=== PATIENT | male | born 1950 | race Caucasian/White ===

== ENCOUNTER 2017-08-20 11:00 | Outpatient (CLI) | payer MEDICARE, OTHER ==
--- NOTE | ~2017-08-20 | HEMODYNAMI ---
PATIENT:TORSTEN CHO MEDICAL RECORD: [id number] : 52 LOCATION:[facility] ADMISSION DATE: 08/20/17 Generatedon:08/20/201715:12 Patient name: TORSTEN CHO Patient #: [id number] SSN: : 1950 Date of study: 08/20/2017 Page: Of Hemodynamic Procedure Report Patient Data Patient Demographics Procedure consent was obtained First Name: TORSTEN Gender: Male Last Name: MARQUIS : 1950 Patient #: [id number] Age: 66 year(s) Race: Unknown Additional ID: [id number] Contact details Address: [place] [address] State: [place] City: [place] Zip code: [address] Past Medical History Allergies Allergen Reaction Date Comments Reported Other allergy 08/20/2017 Demerol Admission Admission Data Admission Date: 08/20/2017 Admission Time: 11:00 Admit Source: Other Lab Results Lab Result Date: 08/20/2017 Lab Result Time: 11:40 Biochemistry Name Units Result Min Max BUN mg/dl 21 --(----)-* 7 18 Creatinine mg/dl 0.8 --(-*--)-- 0.6 1.3 CBC Name Units Result Min Max Hematocrit % 44.2 --(*---)-- 42 54 Hemoglobin g/dl 15.3 --(-*--)-- 13.5 17.5 Procedure Procedure Types Cath Procedure Diagnostic Procedure LHC LH w/Coronaries PCI Procedure Coronary Stent Initial Miscellaneous Procedures Moderate Sedation up to 30 minutes Procedure Description Procedure Date Procedure Date: 08/20/2017 Procedure Start Time: 14:42 Procedure End Time: 15:11 Procedure Staff Name Function Malick Harrison MD Performing Physician Carolina Art RT Scrub Jose Sanabria RN Nurse Jerel Velasquez RT Monitor Procedure Data Cath Procedure Fluoroscopy Diagnostic fluoroscopy Total fluoroscopy Time: 7.6 time: 7.6 min min Diagnostic fluoroscopy Total fluoroscopy dose: dose: 1341 mGy 1341 mGy Contrast Material Contrast Material Type Amount (ml) Isovue 300 140 Entry Location Entry Primary Successful Side Size Upsize Upsize Entry Closure Davila ccessful Closure Location (Fr) 1 (Fr) 2 (Fr) Remarks Device Remarks Radial Right 6 Fr Mechanical artery Short Compression Estimated blood loss: 10 ml Diagnostic catheters Device Type Used For End Catheter Placement Diagnostic Terumo 5Fr Procedure [place] 110cm catheter Diagnostic Infinity 5Fr Procedure AR MOD Catheter Procedure Complications No complications Procedure Medications Medication Administration Route Dosage 0.9% NaCl I.V. 100 ml/hr Oxygen NC 2 l/min Heparin Flush Bag added to field 2 bags (1000units/500ml NS) Lidocaine 2% added to field 20 Radial Cocktail added to field 1 syringe (Verapomil 2mg/Nitro 400mcg/Heparin 1500units) Zofran I.V. 4 mg Versed I.V. 1 mg Fentanyl I.V. 50 mcg Versed I.V. 1 mg Fentanyl I.V. 50 mcg Radial Cocktail I.A. 1 syringe (Verapomil 2mg/Nitro 400mcg/Heparin 1500units) Heparin Bolus I.V. 5000 units Integrilin (Bolus I.V. 9 ml 2mg/ml) Integrilin (Bolus wasted 1 ml 2mg/ml) Plavix P.O. 600 mg Hemodynamics Rest HGB: 15.3 (g/dl) Heart Rate: 66 (bpm) Pressure Samples Time Site Value (mmHg) Purpose Heart Use Rate(bpm) 14:44 LV 116/10,9 EDP 83 14:45 AO 109/65(86) Pullback 74 14:45 LV 112/5,5 Pullback 74 Gradients Valve Time Site 1 Site 2 Mean SEP/DFP Peak To Heart Use (mmHg) (sec/min) Peak Rate (mmHg) (bpm) Aortic 14:45 LV AO 7 13 3 74 112/5,5 109/65(86) Calculations Valve P-P Mean Valve Index Valve Source Name Gradient Area Flow (cm2) Aortic 3 7 3 7 Snapshots Pre Cath Intra NCS Post Cath Vital Signs Time Heart Resp SPO2 etCO2 NIBP (mmHg) Rhythm Pain Sedation Rate (ipm) (%) (mmHg) Status Level (bpm) 14:23:21 72 20 98 24.7 177/106(144) NSR 0 (11) 10(A) , No pain 14:28:09 67 16 96 40.4 146/97(119) NSR 0 (11) 10(A) , No pain 14:32:52 67 16 96 12.7 145/90(112) NSR 0 (11) 10(A) , No pain 14:37:33 68 15 95 16.4 141/86(112) NSR 0 (11) 10(A) , No pain 14:42:11 67 14 96 39.7 146/94(118) NSR 0 (11) 10(A) , No pain 14:46:50 73 14 92 21.7 127/74(96) NSR 0 (11) 9(A) , No pain 14:51:28 79 16 92 41.9 140/84(116) NSR 0 (11) 9(A) , No pain 14:56:09 76 15 94 25.4 147/85(108) NSR 0 (11) 9(A) , No pain 15:00:49 76 16 94 41.2 130/77(103) NSR 0 (11) 9(A) , No pain 15:05:32 75 16 95 41.2 142/73(102) NSR 0 (11) 9(A) , No pain 15:10:15 80 16 94 32.2 134/84(110) NSR 0 (11) 9(A) , No pain Medications Time Medication Route Dose Verified Delivered Reason Note s Effectiveness by by 14:23:50 0.9% NaCl I.V. 100 Jose Jose Per physician ml/hr Elly Sanabria RN 14:24:02 Oxygen NC 2 l/min Jose Jose Per physician Elly Sanabria RN 14:24:17 Heparin Flush added 2 bags Jose Jose used for Bag to Elly aSnabria procedure (1000units/500ml field JACQUELINE NS) 14:24:35 Lidocaine 2% added 20ml Jose Jose for local to vial Elly Sanabria anesthetic field PHILLIPS 14:24:53 Radial Cocktail added 1 Jose Jose for (Verapomil to syringe Elly Sanabria vasodilation 2mg/Nitro RN 400mcg/Heparin 1500units) 14:27:35 Zofran I.V. 4 mg Jose Jose Per physician Elly Sanabria RN 14:39:06 Versed I.V. 1 mg Jose Jose for sedation Elly Sanabria RN 14:39:22 Fentanyl I.V. 50 mcg Jose Jose for sedation Elly Sanabria RN 14:41:28 Versed I.V. 1 mg Jose Jose for sedation Elly Sanabria RN 14:41:36 Fentanyl I.V. 50 mcg Jose Jose for sedation Elly Sanabria RN 14:44:37 Radial Cocktail I.A. 1 Joseelba Teresa for (Verapomil syringe Elly Harrison vasodilation 2mg/Nitro JACQUELINE YOO 400mcg/Heparin 1500units) 14:55:52 Heparin Bolus I.V. 5000 Jose Teresa for units Elly Harrison anticoagulation JACQUELINE YOO 14:56:15 Integrilin I.V. 9 ml Jose Teresa for (Bolus 2mg/ml) Elly Harrison antiplatelet JACQUELINE YOO therapy 14:56:28 Integrilin wasted 1 ml Joseelba Teresa to sharp's (Bolus 2mg/ml) Elly Harrison RN, MD 15:08:36 Plavix P.O. 600 mg Jose Martinezory for Elly Harrison antiplatelet JACQUELINE YOO therapy Procedure Log Time Note 12:52:26 Informed consent obtained and on chart 12:52:30 Admit Source: Other 12:52:31 Diagnostic Cath status Elective 12:52:33 Time tracking: Regular hours 12:52:37 Plan of Care:Hemodynamics will remain stable., Cardiac rhythm will remain stable., Comfort level will be maintained., Respiratory function will remain adequate., Patient/ family verbilizes understanding of procedure., Procedure tolerated without complication., Recovers from procedure without complications.. 12:52:53 H&P Date Dictated: 07/25/2017 Within 30 days and on chart., H&P Addendum completed by physician on day of procedure. (MUST COMPLETE FOR ALL OUTPATIENTS). 12:56:36 Lab Result : Creatinine 0.8 mg/dl 12:56:36 Lab Result : BUN 21 mg/dl 12:56:36 Lab Result : Hematocrit 44.2 % 12:56:36 Lab Result : Hemoglobin 15.3 g/dl 13:57:13 Jerel FREY(R) sent for patient. Start room use. 14:06:50 Patient received from Pre/Post Procedure Room to CCL 1 Alert and oriented. Tansferred to table in Supine position. 14:06:51 Warm blankets applied, and yudelka hugger turned on for patient comfort. 14:06:51 Correct patient and procedure confirmed by team. 14:06:52 ECG and BP/O2 sat monitors applied to patient. 14:22:23 Vital chart was started 14:23:50 0.9% NaCl 100 ml/hr I.V. was administered by Jose Sanabria; Per physician; 14:24:02 Oxygen 2 l/min NC was administered by Jose Sanabria; Per physician; 14:24:17 Heparin Flush Bag (1000units/500ml NS) 2 bags added to field was administered by Jose Sanabria; used for procedure; 14:24:35 Lidocaine 2% 20ml vial added to field was administered by Jose Sanabria; for local anesthetic; 14:24:53 Radial Cocktail (Verapomil 2mg/Nitro 400mcg/Heparin 1500units) 1 syringe added to field was administered by Jose Sanabria; for vasodilation; 14:27:35 Zofran 4 mg I.V. was administered by Jose Sanabria; Per physician; 14:30:40 Baseline sample Acquired. 14:30:44 Rhythm: sinus rhythm 14:30:45 Full Disclosure recording started 14:30:46 Pre-procedure instructions explained to patient. 14:30:47 Pre-op teaching completed and patient verbalized understanding. 14:30:54 Family in waiting room. 14:30:59 Patient NPO since Midnight. 14:31:13 Patient allergic to Other allergyDemerol 14:31:17 Is the patient allergic to Iodine/contrast media? No. 14:31:18 Is patient on blood thinner?No 14:31:19 Patient diabetic? No. 14:31:22 Previous problem with sedation/anesthesia? No ? 14:31:24 Snore? Yes 14:31:24 Sleep apnea? No 14:31:25 Deviated septum? No 14:31:27 Opens mouth fully? Yes 14:31:28 Sticks out tongue? Yes 14:31:31 Airway obstruction? No ? 14:31:35 Dentures? No ? 14:31:37 Modified Girma's test Ulnar < 7 seconds 14:31:39 Patient pain scale 0/10 ?. 14:31:47 IV patent on arrival in left hand with 0.9% NaCl at [facility]. 14:31:50 Lab results completed and on chart. 14:31:53 Right Radial & Right Groin area was prepped with chlora-prep and draped in sterile fashion 14::53 Alarms reviewed by R. N. 14:31:57 Sharps counted by scrub and verified by R.N. 14:31:59 Use device set Radial Dx 14:32:00 MBrace Wrist Support opened to sterile field. 14:32:01 Acist Manifold opened to sterile field. 14:32:02 Tegaderm 4 x 4 opened to sterile field. 14:32:02 Acist Hand Control opened to sterile field. 14:32:03 Acist Syringe opened to sterile field. 14:32:03 Medline Cath Pack opened to sterile field. 14:32:04 Bag Decanter opened to sterile field. 14:32:04 Terumo 6Fr Slender Glidesheath opened to sterile field. 14:32:05 St Michael 260cm J .035 wire opened to sterile field. 14:32:09 Physician arrived 14:32:10 --------ALL STOP TIME OUT------ 14:32:10 Final Timeout: patient, procedure, and site verified with staff and physician. All members of the team are in agreement. 14:32:11 Right Radial & Right Groin site verified by team. 14:32:15 Sedation plan: IV Moderate Sedation Versed, Fentanyl 14:34:39 Zero performed for pressure channel P1 14:39:06 Versed 1 mg I.V. was administered by Jose Sanabria; for sedation; 14:39:22 Fentanyl 50 mcg I.V. was administered by Jose Loriglesia; for sedation; 14:40:48 Procedure started. 14:41:28 Versed 1 mg I.V. was administered by Jose Loriglesia; for sedation; 14:41:36 Fentanyl 50 mcg I.V. was administered by Jose Loriglesia; for sedation; 14:42:58 Local anesthetic to right radial artery with Lidocaine 2% by Malick Harrison MD.INITIAL ACCESS ONLY 14:43:07 A 6 Fr Short sheath was inserted into the Right Radial artery 14:43:17 A Diagnostic Terumo 5Fr [place] 110cm catheter was advanced over the wire and used for Procedure. 14:43:57 LV hemodynamics recorded. 14:43:59 LV gram done using TALBERT 14:44:01 Injector settings: Ml/sec: 5, Volume: 15, 14:44:37 Radial Cocktail (Verapomil 2mg/Nitro 400mcg/Heparin 1500units) 1 syringe I.A. was administered by Malick Harrison MD; for vasodilation; 14:44:47 EF : 55 % 14:45:18 LCA angiography performed. 14:47:32 Catheter exchanged over wire. 14:48:11 A Diagnostic Infinity 5Fr AR MOD Catheter was advanced over the wire and used for Procedure. 14:49:45 RCA angiography performed. 14:51:23 Catheter removed. 14:51:54 Etienne Birch Tree Medicalisper J 300cm 0.014 guide wire opened to sterile field. 14:51:55 T1 Visions BasixCompak Inflation Kit opened to sterile field. 14:52:56 Cordis 6FR XB 3.5 guide catheter opened to sterile field. 14:53:24 6 Fr xb 3.5 guide catheter was inserted over the wire 14:53:52 [employer] Property Investments[employer]per wire advanced. 14:55:52 Heparin Bolus 5000 units I.V. was administered by Malick Harrison MD; for anticoagulation; 14:56:15 Integrilin (Bolus 2mg/ml) 9 ml I.V. was administered by Malick Harrison MD; for antiplatelet therapy; 14:56:28 Integrilin (Bolus 2mg/ml) 1 ml wasted was administered by Malick Harrison MD; to sharp's; 14:56:54 Wire advanced across lesion. 15:01:27 The Medtronic Integrity 3.0 X 12 stent was advanced then removed because device failure 15:02:08 Inflation Number: 1 A Medtronic Integrity 3.0 X 9 stent was prepped and advanced across the 1st Ob Anay. The stent was deployed at 14 REUBEN for 0:22 (min:sec). 15:02:41 Stent catheter was removed intact over wire. 15:06:10 Inflation Number: 2 A Medtronic Integrity 3.0 X 12 stent was prepped and advanced across the 1st Ob Anay. The stent was deployed at 11 REUBEN for 1:20 (min:sec). 15:06:12 Stent catheter was removed intact over wire. 15:06:13 Wire removed. 15:06:14 Guide catheter removed. 15:06:44 Terumo TR Band Large opened to sterile field. 15:07:13 Sheath removed intact; hemostasis achieved with Mechanical Compression to the Right Radial artery. 15:07:14 Procedure ended.(Physican Out) 15:07:50 Fluoroscopy time 07.60 minutes. 15:07:55 Flurop Dose total: 1341 15:07:55 Fluoroscopy dose: 1341 mGy 15:08:00 Contrast amount:Isovue 300 140ml. 15:08:02 Sharps counted by scrub and verified by R.N. 15:08:36 Plavix 600 mg P.O. was administered by Malick Harrison MD; for antiplatelet therapy; 15:09:32 TR band inflated with 9cc of air. 15:09:34 Insertion/operative site no bleeding no hematoma. 15:09:37 Post Procedure Pulses reassessed and unchanged 15:09:40 Post-procedure physical assessment completed. ASA score P 2 - A patient with mild systemic disease as per Malick Harrison MD. 15:09:43 Post procedure rhythm: unchanged. 15:09:51 Estimated blood loss: 10 ml 15:09:53 Post procedure instruction explained to patient.Patient verbalizes understanding. 15:09:54 Patient needs reinforcement of post procedure teaching. 15:10:09 Procedure type changed to Cath procedure, Diagnostic procedure, LHC, LHC w/Coronaries, PCI procedure, Coronary Stent Initial, Miscellaneous Procedures, Moderate Sedation up to 30 minutes 15:11:35 Procedure and supply charges have been captured, reviewed, submitted and are correct. 15:11:38 Procedure Complication : No complications 15:11:40 Vital chart was stopped 15:11:40 See physician's report for complete and final results. 15:11:42 Report given to Pre/Post Procedure Room. 15:11:45 Patient transfered to Pre/Post Procedure Room with Stretcher. 15:11:47 Procedure ended. 15:11:47 Full Disclosure recording stopped 15:11:57 End room use (Document Last) Intervention Summary Intervention Notes Time ActionType Lesion and Equipment Action# Pressure Duration Attributes Used 15:01:27 Discard Medtronic Stent Integrity 3.0 X 12 stent 15:02:08 Place stent 1st Ob Anay Medtronic 1 14 00:22 Integrity 3.0 X 9 stent 15:06:10 Place stent 1st Ob Anay Medtronic 2 11 01:20 Integrity 3.0 X 12 stent Device Usage Item Name Manufacture Quantity Catalog Hospital Part Current Minimal Lot# / Number Charge Number Stock Stock Serial# Code Ele Bernard 140-0250-00 086169 96911 794362 5 Wrist Vascular Support Dynamics Acist Acist 1 11262 641415 505898 995583 5 Manifold Medical Systems Inc Tegaderm 4 3M 1 1626W 156695 651143 224754 5 x 4 Acist Hand Acist 1 17105 914559 872201 203845 5 Control Medical Systems Inc Acist Acist 1 94217 094338 897828 150209 20 Syringe Medical Systems Inc Medline Cardinal 1 [id number] 407659 23482 525076 5 Cath Pack Health Bag Microtek 1 2002S 214027 41952 132683 5 Eleven [employer] Medical Inc. Terumo 6Fr Terumo 1 [id number] 013644 395060 233739 [address] [facility] 1 177716 309807 880132 655389 30 260cm J .035 wire Diagnostic Terumo 1 40-3439 156113 773198 015846 5 Terumo 5Fr [place] 110cm catheter Diagnostic Cardinal 1 [id number] 951451 551815 001150 15 Rivalfox Health 5Fr AR MOD Catheter Etienne Etienne 1 [id number] 000539 136303 974359 5 Whisper J Vascular 300cm 0.014 guide wire Merit Merit 1 FT1169 917948 501462 300330 15 [facility] Center[facility] Medical Inflation Kit Cordis 6FR Cardinal 1 [id number] 631658 456519 610856 2 XB 3.5 Health guide catheter Medtronic Medtronic 2 [id number] 483660 711590 9 [id number] Integrity [id number] 3.0 X 12 stent Medtronic Medtronic 1 [id number] 144145 813843 2 [id number] Integrity 3.0 X 9 stent Terumo TR Terumo 1 [id number] 477093 544104 688181 40 Band Large Signature Audit [place] Stage Time Signature Unsigned Intra-Procedure 08/20/2017 Jerel eVlasquez 3:12:29 PM RT(R) Signatures Monitor : Jerel Velasquez RT Signature : Date : Time : [address] [place] [address]
[2017-08-20] MEDS ORDERED: UROCIT-K10 MEQ PO (11:23)
[2017-08-20] MEDS ORDERED: ACCUPRIL10 MG PO (11:24)
[2017-08-20] MEDS ORDERED: NORVASC5 MG PO (11:24)
[2017-08-20] MEDS ORDERED: OMEPRAZOLE20 M1 PO (11:24)
[2017-08-20] MEDS ORDERED: BAYER CHEWABLE81 MG PO (11:25)
[2017-08-20 11:32] VITALS: BP 194/98; BMI 32.9
[2017-08-20 11:59] LABS: BASOPHILS 0.4 % (0-2); EOSINOPHILS 2.3 % (0-7); HEMATOCRIT 44.2 % (42.0-54.0); HEMOGLOBIN 15.3 g/dL (13.5-17.5); IMMATURE GRANULOCYTES 0.4 % (0-5); MCHC 34.6 g/dL (31.0-37.0); MCV 89.5 fL (80.0-100.0); MEAN PLATELET VOLUME 9.4 fL (7.4-10.4); MONOCYTES 9.8 % (2-11); NEUTROPHILS 56.1 % (40-80); PLATELET COUNT 179 10x3/uL (130-400); RBC 4.94 10x6/uL (4.20-6.10); RDW 12.9 % (11.5-14.5); WBC 5.7 10x3/uL (4.8-10.8)
[2017-08-20 12:13] LABS: CALC OSMOLALITY 281 mosm/kg (275-300); CALCIUM 9.7 mg/dL (8.5-10.1); CARBON DIOXIDE 23.5 mmol/L (21.0-32.0); CHLORIDE - SERUM 104 mmol/L (98-107); CREATININE - SERUM 0.8 mg/dL (0.6-1.3); GLUCOSE 99 mg/dL (74-106); POTASSIUM - SERUM 4.6 mmol/L (3.5-5.1); SODIUM 140 mmol/L (136-145); UREA NITROGEN 21 mg/dL (7-18); eGFR NON AFRICAN AMERICAN > 90 mL/min (90-120)
[2017-08-20] MEDS ORDERED: PLAVIX75 MG PO (15:18)
--- NOTE | 2017-08-20 15:35 | NUR ---
2L NC, NO RESP DISTRESS. RIGHT WRIST TR BAND CDI, NO BLEEDING OR HEMATOMA NOTED. NO C/O PAIN OR NAUSEA. VSS. FAMILY AT BEDSIDE, CALL LIGHT WITHIN REACH.
--- NOTE | 2017-08-20 16:05 | NUR ---
SANDWICH TRAY AND DRINK GIVEN, NO C/O NAUSEA. RIGHT WRIST TR BAND CDI, NO BLEEDING OR HEMATOMA NOTED. DENIES ANY PAIN. VSS. 2L NC, NO RESP DISTRESS. WILL CONTINUE TO MONITOR.
--- NOTE | 2017-08-20 16:20 | NUR ---
2L NC, NO RESP DISTRESS. RIGHT WRIST TR BAND CDI, NO BLEEDING OR HEMATOMA NOTED. VSS. DENIES ANY C/O. FAMILY AT BEDSIDE, CALL LIGHT WITHIN REACH.
--- NOTE | 2017-08-20 16:35 | NUR ---
RESTING QUIETLY WITH EYES CLOSED. VSS. RIGHT WRIST TR BAND CDI, NO BLEEDING OR HEMATOMA NOTED. NO C/O AT THIS TIME. VSS. WILL CONTINUE TO MONITOR CLOSELY.
--- NOTE | 2017-08-20 17:35 | NUR ---
2L NC, NO RESP DISTRESS. RIGHT WRIST TR BAND CDI, NO BLEEDING OR HEMATOMA. NO C/O OF PAIN OR NAUSEA. VSS. CALL LIGHT WITHIN REACH.
--- NOTE | 2017-08-20 18:15 | NUR ---
3CC OF AIR REMOVED FROM TR BAND, NO BLEEDING NOTED.
--- NOTE | 2017-08-20 18:32 | NUR ---
3CC OF AIR REMOVED FROM TR BAND, NO BLEEDING OR HEMATOMA NOTED. VSS. NO C/O AT THIS TIME.
--- NOTE | 2017-08-20 18:45 | NUR ---
2CC OF AIR REMOVED FROM TR BAND, NO BLEEDING NOTED.
--- NOTE | 2017-08-20 18:52 | NUR ---
LEFT WRIST PIV D/C'D WITH CATHETER INTACT, BAND AID TO SITE. UP TO BEDSIDE TO GET DRESSED.
--- NOTE | 2017-08-20 19:00 | NUR ---
REMAINING AIR REMOVED FROM TR BAND, DRESSING TO SITE. DISCHARGE INSTRUCTIONS GIVEN, VERBALIZED UNDERSTANDING.
--- NOTE | 2017-08-20 19:10 | NUR ---
TAKEN OUT VIA WHEELCHAIR BY CATH TELEPHONE SOLICITOR. LEFT FACILTIY WITH FAMILY AND ALL PERSONAL BELONGINGS.
--- NOTE | 2017-08-21 13:05 | OP ---
PATIENT NAME: TORSTEN CHO MEDICAL RECORD: [id number] :52 LOCATION:D.[facility] ADMISSION DATE: SURGEON: KOKO PHIPPS MD DATE OF OPERATION: 08/20/2017 PROCEDURE: Left heart catheterization, selective coronary angiography, right radial approach. CATHETER: Left Duchesne catheter. The procedure was well tolerated and proceeded with PTCA stenting to OM, procedure finished. FINDINGS: Left ventriculography in the 30-degree TALBERT view: Normal wall motion and normal systolic function. CORONARY ANATOMY: LEFT MAIN: Left main is free of disease. LAD: Has no flow obstructive stenosis. CIRCUMFLEX: Large OM system, has 2 sequential stenosis, distal 80% and proximal 80%. RIGHT CORONARY ARTERY: Large vessel, free of disease. IMPRESSION: Single-vessel disease involving circumflex. PLAN: Intervention of this vessel momentarily. DESCRIPTION OF PROCEDURE: A 5-Azerbaijani indwelling radial catheter, XB 0.035 catheter provided excellent guide catheter support. A 300 cm Whisper wire was placed across both lesions down this portion of vessel. Distal stent deployed was a 3.0 x 9mm Integrity nondrug-eluting stent up to 9 atmospheres. Proximal stent was a 12 mm x 3.0 Integrity nondrug-eluting stent up to 14 atmospheres for 45 seconds each stent. Final injection shows excellent resolution of two 80% stenoses, no significant residual. DELFINA flow was 3 throughout the procedure. Integrilin was used in the case. Plavix was loaded in the lab. Sheath was closed with ExoSeal device. TRANSINT:[id number] Voice Confirmation ID: [id number] DOCUMENT ID: [id number] KOKO PHIPPS MD at 1305 CC: [id number] DICTATION DATE: 08/20/17 1516 STATIONARY STEAM ENGINEER: 08/20/17 1609 DEP CLI 08/20/17 [place] [id number]
== END 2017-08-20 19:10 | disposition home or self-care (01) ==
LOC: D.CATH 11:00
PROVIDERS: Internal Medicine Interventional Cardiology
DX: I25.119 Atherosclerotic heart disease of native coronary artery with unspecified angina pectoris (principal); E78.5 Hyperlipidemia, unspecified; R01.1 Cardiac murmur, unspecified; I10 Essential (primary) hypertension; R06.02 Shortness of breath; R07.9 Chest pain, unspecified; Z01.812 Encounter for preprocedural laboratory examination

== ENCOUNTER → 2019-06-26 08:18 | Outpatient (CLI) | payer MEDICARE, OTHER ==
[~2019-06-26 08:18] MED LIST: ACCUPRIL10 MG PO; BAYER CHEWABLE81 MG PO; NORVASC5 MG PO; OMEPRAZOLE20 M1 PO; PLAVIX75 MG PO; UROCIT-K10 MEQ PO
--- NOTE | 2019-07-01 13:03 | EC ---
PATIENT:TORSTEN CHO DATE OF SERVICE: 06/26/19 SEX: M MEDICAL RECORD: [id number] DATE OF : [birth year] LOCATION:D[facility] AGE OF PATIENT: 68 ADMISSION DATE: 06/26/19 REFERRING PHYSICIAN: INTERPRETING PHYSICIAN: KOKO PHIPPS MD ECHOCARDIOGRAM REPORT ECHO CHARGES 4 ECHO COMPLETE Date: 06/26/19 CLINICAL DIAGNOSIS: HEART MURMUR ECHOCARDIOGRAPHIC MEASUREMENTS (adult normal given) AC root (d.<3.7cm) 4.1 cm LV Septum d (<1.2 cm> 1.4 cm Valve Excursion 1.8 cm LV Septum (systole) 1.7 cm Left Atria (s.<4.0cm> 3.9 cm LVPW d(<1.2cm) 1.5 cm RV (d.<2.3cm) 4.0 cm LVPW (sytole) 1.9 cm LV diastole(<5.6CM) 4.4 cm MV E-F(>70mm/sec) cm LV systole 3.1 cm LVOT Diameter 2.3 cm MV exc.(>10mm) 1.4 cm Est.ejection fraction (50-75%) % DOPPLER: LVIT cm/sec A 128 cm/sec E 96.0 cm/sec LA cm/sec RVSP 27 mmHg LVOT 141 cm/sec AOP1/2T m/s Asc. Ao 224 cm/sec RVOT 73 cm/sec RA cm/sec PA 139 cm/sec AV Gradient Peak 20.03mmHg AV Mean 11.38mmHg AV Area 2.4 cm MV Gradient Peak 7.73 mmHg MV Mean 2.60 mmHg MV Area cm COMMENTS: Associate Director Finance: 2 RENU RODGERS Diesel Stationary Engineer: 3 Dr. Harrison TAPE# PACS Pericardial Effusion N DATE OF SERVICE: 06/26/2019 Adequate 2D, color flow imaging, spectral Doppler, and M-Mode LVH is present. LV internal dimension is normal. Wall motion is normal. EF is greater than or equal to 55%. Aortic valve is sclerotic with no restriction of leaflet motion. Peak gradient of 20 mm putting this in a very mild range. Left atrium is normal at 3.9 cm. Mitral valve shows no prolapse. Trace MR. Right-sided chambers are grossly normal. Mild TR. ECHOCARDIOGRAM REPORT [id number] TORSTEN CHO TRANSINT:[id number] Voice Confirmation ID: [id number] DOCUMENT ID: [id number] KOKO PHIPPS MD at 1303 CC: [id number] DICTATION DATE: 06/28/19 1031 PATIENT ACCESS SPECIALIST: 06/28/19 1114 DEP CLI 06/26/19 [place] [id number] [place] [id number]
== END | disposition home or self-care (01) ==
LOC: D.HCCECHO 08:18 → D.HCCARDIO 08:30
PROVIDERS: ATTEND Internal Medicine Interventional Cardiology
DX: R01.1 Cardiac murmur, unspecified (principal)

== ENCOUNTER → 2020-06-30 07:52 | Outpatient (CLI) | payer MEDICARE, OTHER ==
--- NOTE | ~2020-06-30 | EC ---
PATIENT:TORSTEN CHO DATE OF SERVICE: 06/30/20 SEX: M MEDICAL RECORD: [id number] DATE OF : 52 [facility] AGE OF PATIENT: 69 ADMISSION DATE: 06/30/20 REFERRING PHYSICIAN: INTERPRETING PHYSICIAN: KOKO PHIPPS MD ECHOCARDIOGRAM REPORT ECHO CHARGES 4 ECHO COMPLETE Date: 06/30/20 CLINICAL DIAGNOSIS: CAD/ASSESS EF AND VALVES ECHOCARDIOGRAPHIC MEASUREMENTS (adult normal given) AC root (d.<3.7cm) 4.1 cm LV Septum d (<1.2 cm> 1.5 cm Valve Excursion 1.6 cm LV Septum (systole) 1.7 cm Left Atria (s.<4.0cm> 4.1 cm LVPW d(<1.2cm) 1.6 cm RV (d.<2.3cm) 3.7 cm LVPW (sytole) 1.9 cm LV diastole(<5.6CM) 4.3 cm MV E-F(>70mm/sec) cm LV systole 2.7 cm LVOT Diameter 1.9 cm MV exc.(>10mm) 1.1 cm Est.ejection fraction (50-75%) % DOPPLER: LVIT cm/sec A 127.0cm/sec E 100.0 cm/sec LA cm/sec RVSP 33 mmHg LVOT 159 cm/sec AOP1/2T m/s Asc. Ao 199 cm/sec RVOT 98 cm/sec RA cm/sec PA 138 cm/sec AV Gradient Peak 15.84mmHg AV Mean 8.56 mmHg AV Area 2.2 cm MV Gradient Peak 7.46 mmHg MV Mean 2.84 mmHg MV Area cm COMMENTS: Regional Loss Prevention Manager: 2 RENU RODGERS Trial Paralegal: 3 Dr. Harrison TAPE# PACS Pericardial Effusion N DATE OF SERVICE: Adequate 2D echo, color flow imaging, spectral Doppler, and M-mode. LVH is present. LV internal dimension is normal. Wall motion is normal. EF is greater than or equal to 55%. Aortic valve sclerosis. No evidence of stenosis by Doppler interrogation. Left atrium is mildly dilated at 4.1 cm. Mitral valve shows no prolapse. Trivial MR. Right-sided chambers are grossly normal. Mild TR. ECHOCARDIOGRAM REPORT [id number] TORSTEN CHO NTS:[id number] Voice Confirmation ID: [id number] DOCUMENT ID: [id number] KOKO PHIPPS MD CC: [id number] DICTATION DATE: 07/01/20 1303 SURVEY DIRECTOR: 07/01/20 1828 DEP CLI 06/30/20 [place] [id number] [place] [id number]
== END | disposition home or self-care (01) ==
LOC: D.HCCECHO 07:52
PROVIDERS: ATTEND Internal Medicine Interventional Cardiology
DX: I25.10 Atherosclerotic heart disease of native coronary artery without angina pectoris (principal)